=== PATIENT | male | born 1980 | race Caucasian/White ===

== ENCOUNTER 2023-11-05 22:34 | Emergency (ER) | payer MEDICAID ==
[~2023-11-05] VITALS: Ht 165.1 cm; Wt 79.4 kg
[2023-11-05 22:40] VITALS: BP_SYST 161; PULSE 105; RESP 18; TEMP 98; O2SAT 96
[2023-11-05] MEDS ORDERED: IBUP-1969 PO (23:11)
== END 2023-11-05 23:14 | disposition home or self-care (01) ==
LOC: SED 22:34
DX: S62.102A Fracture of unspecified carpal bone, left wrist, initial encounter for closed fracture (principal); V00.141A Fall from scooter (nonmotorized), initial encounter; Y93.89 Activity, other specified; Y92.89 Other specified places as the place of occurrence of the external cause; Y99.8 Other external cause status
CPT/HCPCS: 99283